=== PATIENT | male | born 1985 | race Hispanic/Latino ===

== ENCOUNTER 2025-02-12 17:57 | Emergency (ER) | payer OTHER | END 2025-02-12 19:01 | disposition home or self-care (01) | LOC: BURERS 17:57 | DX: S90.02XA Contusion of left ankle, initial encounter (principal); S90.32XA Contusion of left foot, initial encounter; F17.200 Nicotine dependence, unspecified, uncomplicated; W19.XXXA Unspecified fall, initial encounter | CPT/HCPCS: 99283 ==